=== PATIENT | male | born 1995 | race African-American/Black ===

== ENCOUNTER 2017-06-17 14:44 | Emergency (ER) | payer MEDICAID, OTHER ==
--- NOTE | 2017-06-17 15:08 | ED ---
General Adult HPI - General Chief complaint: Abdominal Pain Stated complaint: Abd Pain Time Seen by Provider: 06/17/17 15:07 Source: patient Mode of arrival: ambulatory Limitations: no limitations - History of Present Illness Initial comments: Vinnie is a 22-year-old male who presents to the emergency department today for evaluation of approximately 6 hours of nausea, vomiting and diarrhea. Patient reports that he woke this morning with some abdominal cramping, he subsequent later developed diarrhea. He reports he's had approximately 5 episodes of nonbloody diarrhea. He reports he's also been experiencing persistent nausea, worse with the smell of any food. He states he's had 5 episodes of nonbloody nonbilious emesis. Patient reports that he has been seen in the emergency department for this in the past that episodes like this of her approximately 2- 3 times a year. He's never followed up with gastroenterology or had a formal diagnosis. Patient denies any recent suspicious food intake, any sick contacts or anybody else in the household having similar symptoms. Denies any fevers, chills, dysuria, myalgias, URI-like symptoms. - Related Data Previous Rx's Medication Instructions Recorded Ondansetron Odt [Zofran Odt] 4 mg PO Q8HR PRN #8 tab 06/17/17 Allergies Allergy/AdvReac Type Severity Reaction Status Date / Time venom-honey bee Allergy Severe Anaphylaxis Verified 06/17/17 14:58 [bee venom (honey bee)] Review of Systems ROS Statement: Those systems with pertinent positive or pertinent negative responses have been documented in the HPI. ROS Other: All systems not noted in ROS Statement are negative. Constitutional: Denies: fever, chills ENT: Denies: throat pain Respiratory: Denies: cough Cardiovascular: Denies: palpitations Gastrointestinal: Reports: abdominal pain, nausea, vomiting, diarrhea Genitourinary: Denies: dysuria Skin: Denies: rash Hematological/Lymphatic: Reports: easy bleeding Past Medical History Past Medical History: No Reported History History of Any Multi-Drug Resistant Organisms: None Reported Past Surgical History: No Surgical Hx Reported Past Anesthesia/Blood Transfusion Reactions: No Reported Reaction Past Psychological History: Anxiety, Depression Smoking Status: Never smoker Past Alcohol Use History: Rare Past Drug Use History: None Reported - Past Family History Mother Family Medical History: Hypertension Father History Unknown: Yes General Exam Limitations: no limitations General appearance: alert, in no apparent distress Head exam: Present: atraumatic, normocephalic Eye exam: Present: normal appearance, PERRL ENT exam: Present: normal exam, normal oropharynx Neck exam: Present: normal inspection Respiratory exam: Present: normal lung sounds bilaterally. Absent: respiratory distress Cardiovascular Exam: Present: normal rhythm, tachycardia GI/Abdominal exam: Present: soft. Absent: distended, tenderness, guarding, rebound, rigid Rectal exam: Present: deferred Extremities exam: Present: normal inspection, full ROM Back exam: Present: normal inspection Neurological exam: Present: alert, oriented X3 Psychiatric exam: Present: anxious Skin exam: Present: warm, dry Course Vital Signs 06/17/17 06/17/17 06/17/17 14:51 16:33 18:05 Temperature 97.9 F 98.5 F Pulse Rate 109 H 107 H Respiratory 20 18 18 Rate Blood Pressure 110/73 125/63 O2 Sat by Pulse 100 98 Oximetry 06/17/17 19:30 Temperature 98.7 F Pulse Rate 88 Respiratory 16 Rate Blood Pressure 134/67 O2 Sat by Pulse 97 Oximetry - Reevaluation(s) Reevaluation #1: Patient was reevaluated, reports complete resolution of his nausea however is still experiencing significant cramping abdominal pain. Bentyl and morphine were ordered. 06/17/17 18:06 Medical Decision Making - Medical Decision Making Patient was seen and evaluated, vital signs were reviewed Patient is afebrile and tachycardic, likely secondary to dehydration Does go exam is unremarkable, patient has no tenderness in the epigastrium, tenderness in the periumbilical region or tenderness in the right lower quadrant. He complains of cramping diffuse abdominal pain worse higher to have a bowel movement. At this time I have is high suspicion for an enteritis likely secondary to something he ate or possible infectious. Patient has no risk factors for traveler's diarrhea or infectious causes of diarrhea. IV fluids, Zofran labs and an acute abdominal series were ordered Labs reveal a significant leukocytosis with neutrophilia. Computed tomography scan of the abdomen was ordered. Patient with resolution of his nausea but persistent abdominal pain. Bentyl and morphine ordered Patient tolerated oral contrast Computed tomography scan suggestive of enteritis with significant amount of fluid within the bowel. These results were discussed with the patient. I had a further discussion with the patient who admits that he has a very poor and inconsistent diet. He reports that he eats at fast food restaurants gas stations frequently he has had multiple episodes of food poisoning in the past few years. He states that he relates fruits or vegetables. I discussed with patient his poor nutritional choices and advised him that he would likely do better eating in his own home, more fruits and vegetables and less fast food. All questions pertaining to care were answered to the best of my ability and the patient was discharged home in stable condition. Patient was advised to maintain oral hydration with water and solution such as Gatorade or Powerade. - Lab Data Result diagrams: 06/17/17 15:36 06/17/17 15:36 Lab Results 06/17/17 06/17/17 06/17/17 Range/Units 15:36 15:36 16:30 WBC 18.6 H (3.8-10.6) k/uL RBC 5.19 (4.30-5.90) m/uL Hgb 16.3 (13.0-17.5) gm/dL Hct 49.0 (39.0-53.0) % MCV 94.5 (80.0-100.0) fL MCH 31.4 (25.0-35.0) pg MCHC 33.3 (31.0-37.0) g/dL RDW 11.9 (11.5-15.5) % Plt Count 303 (150-450) k/uL Neutrophils % 91 % Lymphocytes % 5 % Monocytes % 3 % Eosinophils % 1 % Basophils % 0 % Neutrophils # 16.9 H (1.3-7.7) k/uL Lymphocytes # 0.9 L (1.0-4.8) k/uL Monocytes # 0.5 (0-1.0) k/uL Eosinophils # 0.1 (0-0.7) k/uL Basophils # 0.0 (0-0.2) k/uL Sodium 142 (137-145) mmol/L Potassium 4.5 (3.5-5.1) mmol/L Chloride 103 (98-107) mmol/L Carbon Dioxide 27 (22-30) mmol/L Anion Gap 12 mmol/L BUN 14 (9-20) mg/dL Creatinine 0.89 (0.66-1.25) mg/dL Est GFR (MDRD) Af Amer >60 (>60 ml/min/1.73 sqM) Est GFR (MDRD) Non-Af >60 (>60 ml/min/1.73 sqM) Glucose 101 H (74-99) mg/dL Calcium 10.3 H (8.4-10.2) mg/dL Total Bilirubin 3.1 H (0.2-1.3) mg/dL AST 29 (17-59) U/L ALT 38 (21-72) U/L Alkaline Phosphatase 85 (38-126) U/L Total Protein 8.3 H (6.3-8.2) g/dL Albumin 4.8 (3.5-5.0) g/dL Urine Color Yellow Urine Appearance Clear (Clear) Urine pH 6.5 (5.0-8.0) Ur Specific [place] 1.025 (1.001-1.035) Urine Protein Trace H (Negative) Urine Glucose (UA) Negative (Negative) Urine Ketones 4+ H (Negative) Urine Blood Negative (Negative) Urine Nitrite Negative (Negative) Urine Bilirubin Negative (Negative) Urine Urobilinogen 2.0 (<2.0) mg/dL Ur Leukocyte Esterase Negative (Negative) Disposition Clinical Impression: Nausea vomiting and diarrhea Disposition: HOME SELF-CARE Condition: Good Instructions: Acute Nausea and Vomiting (ED) Prescriptions: Ondansetron Odt [Zofran Odt] 4 mg PO Q8HR PRN #8 tab PRN Reason: Nausea Referrals: None,Stated [Primary Care Provider] - 1-2 days
[2017-06-17] MEDS ORDERED: ONDANSETRON 4 MG/2 ML VIAL IVP STA (15:23)
[2017-06-17] MEDS ORDERED: SODIUM CHLORIDE 0.9% 1,000 ML IV ONE (15:23)
[2017-06-17 15:43] LABS: Basophils % (A) 0 %; Eosinophils # (A) 0.1 k/uL (0-0.7); Eosinophils % (A) 1 %; HGB 16.3 gm/dL (13.0-17.5); Lymphocytes # (A) 0.9 k/uL (1.0-4.8); Lymphocytes % (A) 5 %; MCH 31.4 pg (25.0-35.0); MCHC 33.3 g/dL (31.0-37.0); MCV 94.5 fL (80.0-100.0); Mean Platelet Volume 6.9; Monocytes # (A) 0.5 k/uL (0-1.0); Monocytes % (A) 3 %; Neutrophils # (A) 16.9 k/uL (1.3-7.7); Neutrophils % (A) 91 %; Platelet Count 303 k/uL (150-450); RBC 5.19 m/uL (4.30-5.90); RDW 11.9 % (11.5-15.5); WBC 18.6 k/uL (3.8-10.6)
[2017-06-17] MEDS ORDERED: IOHEXOL 350 MG/ML 25 ML BOTTLE (ORAL USE) PO PRN (15:52)
[2017-06-17] MEDS ORDERED: RX INFO: IV CONTRAST WAS GIVEN 1 EACH MISC MISCELLANE PRN (15:52)
[2017-06-17 15:54] LABS: ALT 38 U/L (21-72); AST 29 U/L (17-59); Albumin 4.8 g/dL (3.5-5.0); Alkaline Phosphatase 85 U/L (38-126); Anion Gap 12 mmol/L; Blood Urea Nitrogen 14 mg/dL (9-20); Calcium 10.3 mg/dL (8.4-10.2); Carbon Dioxide 27 mmol/L (22-30); Chloride 103 mmol/L (98-107); Glucose 101 mg/dL (74-99); Potassium 4.5 mmol/L (3.5-5.1); Sodium 142 mmol/L (137-145); Total Bilirubin 3.1 mg/dL (0.2-1.3); Total Protein 8.3 g/dL (6.3-8.2)
--- NOTE | 2017-06-17 16:16 | XR ---
EXAMINATION TYPE: XR abdomen acute w cxr DATE OF EXAM: 06/17/2017 COMPARISON: 12/06/2011 HISTORY: Abdominal pain TECHNIQUE: 4 views FINDINGS: Lungs are clear. Heart and mediastinum are normal. Bowel gas pattern is normal. There is no sign of i ntestinal obstruction or pneumoperitoneum. Fecal pattern is normal. There are no pathologic calcifica tions over the kidneys. There is no evidence of a mass. CONCLUSION: Nonacute abdomen. Normal chest. Abdomen is stable compared to old exam.
[2017-06-17 16:40] LABS: Appearance,Urine Clear (Clear); Bilirubin,Urine Negative (Negative); Blood,Urine Negative (Negative); Color,Urine Yellow; Glucose,Urine (UA) Negative (Negative); Ketones,Urine 4+ (Negative); Leukocyte Esterase,Urine Negative (Negative); Nitrite,Urine Negative (Negative); PH, Urine 6.5 (5.0-8.0); Protein,Urine Trace (Negative); Specific Gravity,Urine 1.025 (1.001-1.035)
[2017-06-17] MEDS ORDERED: MORPHINE SULFATE 5 MG/ML SYRINGE IVP STA (18:01)
[2017-06-17] MEDS ORDERED: DICYCLOMINE 10 MG/ML 2 ML AMP IM STA (18:01)
--- NOTE | 2017-06-17 18:56 | CT ---
EXAMINATION TYPE: CT abdomen pelvis w con DATE OF EXAM: 06/17/2017 COMPARISON: NONE HISTORY: Generalized pain with vomiting and diarrhea CT DLP: 346.4 mGycm Automated exposure control for dose reduction was used. TECHNIQUE: Helical acquisition of images was performed from the lung bases through the pelvis. CONTRAST: Performed without Oral Contrast and with IV Contrast, patient injected with 100 mL of Omnipaque 300. FINDINGS: Lung bases are clear. There is no pleural effusion. Heart size is normal. Liver spleen pancreas gallbladder appear normal. Bile ducts are not dilated. There is no adrenal mass . Kidneys show satisfactory contrast opacification. There is no hydronephrosis. Ureters are not dilated . There is no retroperitoneal adenopathy. There is no ascites. There are large bowel fluid levels there is fluid level in the rectum. Bladder distends smoothly. There is no sign of a pelvic mass. I see no bony destructive process. Appendix is not seen. There is no sign of appendicitis. There is a small 7 mm cyst on the medial right kidney. IMPRESSION: LARGE BOWEL FLUID LEVELS CONSISTENT WITH DIARRHEA. THERE ARE FLUID-FILLED LOOPS OF DISTAL SMALL BOWEL CONSISTENT WITH MILD ILEUS. NO SIGN OF APPENDICITI S.
[2017-06-17 19:31] VITALS: BP 134/67; PULSE 88; RESP 16; TEMP 98.7
== END 2017-06-17 19:31 | disposition home or self-care (01) ==
LOC: EC 14:44
DX: R11.2 Nausea with vomiting, unspecified (principal); R19.7 Diarrhea, unspecified; R00.0 Tachycardia, unspecified; D72.829 Elevated white blood cell count, unspecified; D72.0 Genetic anomalies of leukocytes; F41.9 Anxiety disorder, unspecified; R10.84 Generalized abdominal pain; Z91.030 Bee allergy status
CPT/HCPCS: 36415; 80053; 85025; 81003; 74022; 74177; 99284; 96374; 96375; 96361; 96372; J0500; J2405; Q9967; J2274

== ENCOUNTER 2022-12-25 13:54 | Inpatient (IN) | payer OTHER ==
[2022-12-25] MEDS ORDERED: SODIUM CHLORIDE 0.9% 1,000 ML IV STA ×2 (14:15→16:55)
[2022-12-25] MEDS ORDERED: SODIUM CHLORIDE 0.9% 500 ML 500 ML IV STA ×2 (14:15→16:55)
[2022-12-25] MEDS ORDERED: ACETAMINOPHEN TAB 500 MG TAB PO STA (14:16)
[2022-12-25] MEDS ORDERED: IBUPROFEN 600 MG TAB PO STA (14:16)
[2022-12-25 14:49] LABS: Basophils % (A) 0 %; Eosinophils # (A) 0.3 k/uL (0-0.7); Eosinophils % (A) 2 %; HCT 42.9 % (39.0-53.0); HGB 13.9 gm/dL (13.0-17.5); Lymphocytes # (A) 1.9 k/uL (1.0-4.8); Lymphocytes % (A) 13 %; MCH 30.7 pg (25.0-35.0); MCHC 32.3 g/dL (31.0-37.0); MCV 95.1 fL (80.0-100.0); Monocytes # (A) 1.2 k/uL (0-1.0); Monocytes % (A) 8 %; Neutrophils # (A) 10.9 k/uL (1.3-7.7); Neutrophils % (A) 74 %; Platelet Count 316 k/uL (150-450); RBC 4.51 m/uL (4.30-5.90); RDW 11.6 % (11.5-15.5); WBC 14.6 k/uL (3.8-10.6)
[2022-12-25 15:03] LABS: ALT 26 U/L (4-49); AST 51 U/L (17-59); African American GFR (CKD) >90 (>60 ml/min/1.73 sqM); Albumin 4.4 g/dL (3.5-5.0); Alkaline Phosphatase 73 U/L (38-126); Anion Gap 10 mmol/L; Blood Urea Nitrogen 5 mg/dL (9-20); Calcium 9.1 mg/dL (8.4-10.2); Carbon Dioxide 27 mmol/L (22-30); Chloride 97 mmol/L (98-107); Glucose 121 mg/dL (74-99); Lipase 37 U/L (23-300); Non-African American GFR(CKD) >90 (>60 ml/min/1.73 sqM); Potassium 3.8 mmol/L (3.5-5.1); Sodium 134 mmol/L (137-145); Total Bilirubin 2.6 mg/dL (0.2-1.3); Total Protein 8.1 g/dL (6.3-8.2)
--- NOTE | 2022-12-25 15:23 | ED ---
Abdominal Pain HPI <Ele Baker - Last Filed: 12/25/22 23:57> - General Source: patient, RN notes reviewed Mode of arrival: ambulatory Limitations: no limitations <Mandeep Oropeza - Last Filed: 12/26/22 12:49> - General Chief Complaint: Abdominal Pain Stated Complaint: abd pain Time Seen by Provider: 12/25/22 14:15 - History of Present Illness Initial Comments: This a 27-year-old male presents emergency Department chief complaint abdominal pain. Patient states his started over a week ago states he seen at [facility] had labs and x-ray delivering was fine states pain is she started getting better but now has worsened. Patient developed a fever he denies any cough or cold-like symptoms see does admit to nausea, unable to eat. Patient has no complaints of dysuria no prior abdominal surgeries. (Mandeep Oropeza) - Related Data Home Medications Medication Instructions Recorded Confirmed No Known Home Medications 12/25/22 12/25/22 Allergies Allergy/AdvReac Type Severity Reaction Status Date / Time venom-honey bee Allergy Severe Anaphylaxis Verified 12/25/22 18:30 [bee venom (honey bee)] Review of Systems ROS Other: All systems not noted in ROS Statement are negative. <Ele Baker - Last Filed: 12/25/22 23:57> ROS Other: All systems not noted in ROS Statement are negative. <Mandeep Oropeza - Last Filed: 12/26/22 12:49> ROS Statement: Those systems with pertinent positive or pertinent negative responses have been documented in the HPI. Past Medical History Past Medical History: No Reported History History of Any Multi-Drug Resistant Organisms: None Reported Past Surgical History: No Surgical Hx Reported Past Anesthesia/Blood Transfusion Reactions: No Reported Reaction Past Psychological History: Anxiety, Depression Smoking Status: Never smoker Past Alcohol Use History: Rare Past Drug Use History: Marijuana - Past Family History Mother Family Medical History: Hypertension Father History Unknown: Yes <Mandeep Oropeza - Last Filed: 12/26/22 12:49> General Exam Limitations: no limitations General appearance: alert, in no apparent distress Head exam: Present: atraumatic, normocephalic, normal inspection Eye exam: Present: normal appearance, PERRL, EOMI. Absent: scleral icterus, conjunctival injection, periorbital swelling ENT exam: Present: normal exam, normal oropharynx, mucous membranes moist Neck exam: Present: normal inspection, full ROM. Absent: tenderness, meningismus, lymphadenopathy Respiratory exam: Present: normal lung sounds bilaterally. Absent: respiratory distress, wheezes, rales, rhonchi, stridor Cardiovascular Exam: Present: regular rate, normal rhythm, normal heart sounds. Absent: systolic murmur, diastolic murmur, rubs, gallop, clicks GI/Abdominal exam: Present: soft, tenderness, normal bowel sounds. Absent: distended, guarding, rebound, rigid Back exam: Absent: CVA tenderness (R), CVA tenderness (L) <Mandeep Oropeza - Last Filed: 12/26/22 12:49> Course Vital Signs 12/25/22 12/25/22 12/25/22 14:05 15:24 17:49 Temperature 102.9 F H 99.0 F Pulse Rate 90 87 Respiratory 18 16 Rate Blood Pressure 140/107 107/65 O2 Sat by Pulse 98 99 Oximetry 12/25/22 18:08 Temperature 99.0 F Pulse Rate 72 Respiratory 18 Rate Blood Pressure 109/70 O2 Sat by Pulse 97 Oximetry Medical Decision Making - Lab Data Result diagrams: 12/25/22 14:39 12/25/22 14:39 - Radiology Data Radiology results: report reviewed, image reviewed <Ele Baker - Last Filed: 12/25/22 23:57> - Lab Data Result diagrams: 12/25/22 14:39 12/25/22 14:39 <Mandeep Oropeza - Last Filed: 12/26/22 12:49> - Medical Decision Making This is a 27-year-old male who presents to the emergency department for fevers and abdominal pain. Case signed out to me by Mandeep Oropeza PA-C, at shift completion. At that time, the results of his computed tomography scan were pending. Lab work revealed leukocytosis with a value of 14.6. Urinalysis demonstrates blood, but no signs of infection. Computed tomography scan of the abdomen/pelvis revealed a left lower lobe consolidation without evidence for acute intra-abdominal process. With the leukocytosis, and with the patient being febrile at 102.9F on arrival, he does meet SIRS criteria. After the computed tomography scan identified the source of infection as being pneumonia, he met septic criteria at 1620. He had already received 1500 mL of IV fluids a nd was given another 500 mL to meet the 30 mL/kg criteria for sepsis fluid bolus. He was started on azithromycin and ceftriaxone per pneumonia protocol with blood cultures obtained prior. Patient admitted to medicine for further management of pneumonia and sepsis. Case discussed with Josiah Arnold with [facility], who accepts the patient for admission. Home medications were reconciled (pt takes no medication at home). Diagnosis/symptom? @ -Pneumonia, sepsis Acute, or Chronic, or Acute on Chronic? @ -Acute Uncomplicated (without systemic symptoms) or Complicated (systemic symptoms)? @ -Complicated Side effects of treatment? @ -None Exacerbation, Progression, or Severe Exacerbation] @ -Not applicable Poses a threat to life or bodily function? @ -Yes This case was discussed in detail with the attending ED physician, Dr. Oquendo. Presentation, findings, and treatment plan discussed in detail as well. (Ele Baker) Was pt. sent in by a medical professional or institution (, PA, SPOT CHECKER, urgent care, hospital, or jail...) When possible be specific @ -[No] Did you speak to anyone other than the patient for history (EMS, parent, family, police, friend...)? What history was obtained from this source @ -[No] Did you review nursing and triage notes (agree or disagree)? Why? @ -[I reviewed and agree with nursing and triage notes] Were old charts reviewed (outside hosp., previous admission, EMS record, old EKG, old radiological studies, urgent care reports/EKG's, jail records)? Report findings @ -[No old charts were reviewed] Differential Diagnosis (chest pain, altered mental status, abdominal pain women, abdominal pain men, vaginal bleeding, weakness, fever, dyspnea, syncope, headache, dizziness, GI bleed, back pain, seizure, CVA, palpatations, mental health, musculoskeletal)? @ -[Differential Abdominal Pain Men: Appendicitis, cholecystitis, diverticulosis, ischemic bowel, pancreatitis, hepatitis, UTI, gastroenteritis, AAA, incarcerated hernia, bowel obstruction, constipation, inflammatory bowel, hepatitis, peptic ulcer disease, splenic infarction, perforated viscus, testicular torsion, this is not meant to be an all-inclusive listable] EKG interpreted by me (3pts min.). @ -[None ] X-rays interpreted by me (1pt min.). @ -[None done] CT interpreted by me (1pt min.). @ -[None done] U/S interpreted by me (1pt. min.). @ -[None done] What testing was considered but not performed or refused? (CT, X-rays, U/S, labs)? Why? @ -[None] What meds were considered but not given or refused? Why? @ -[None] Did you discuss the management of the patient with other professionals (professionals i.e. , PA, SPOT CHECKER, lab, RT, psych nurse, public health social worker, cuprous chloride helper, t eacher, juvenile justice officer, rehabilitation case coordinator)? Give summary @ -[No] Was smoking cessation discussed for >3mins.? @ -[No] Was critical care preformed (if so, how long)? @ -[No] Were there social determinants of health that impacted care today? How? (Homelessness, low income, unemployed, alcoholism, drug addiction, transportation, low edu. Level, literacy, decrease access to med. care, snf, r ehab)? @ -[No] Was there de-escalation of care discussed even if they declined (Discuss DNR or withdrawal of care, Hospice)? DNR status @ -[No] What co-morbidities impacted this encounter? (DM, HTN, Smoking, COPD, CAD, Cance r, CVA, ARF, Chemo, Hep., AIDS, mental health diagnosis, sleep apnea, morbid obesity)? @ -[None] Was patient admitted / discharged? Hospital course, mention meds given and route, prescriptions, significant lab abnormalities, going to OR and other pertinent info. @ -[Case was signed out to Aydee Baker pending CT] Undiagnosed new problem with uncertain prognosis? @ -[No] Drug Therapy requiring intensive monitoring for toxicity (Heparin, Nitro, Insulin, Cardizem)? @ -[No] Were any procedures done? @ -[No] (Mandeep Oropeza) - Lab Data Lab Results 12/25/22 12/25/22 12/25/22 Range/Units 14:39 14:39 14:39 WBC 14.6 H (3.8-10.6) k/uL RBC 4.51 (4.30-5.90) m/uL Hgb 13.9 (13.0-17.5) gm/dL Hct 42.9 (39.0-53.0) % MCV 95.1 (80.0-100.0) fL MCH 30.7 (25.0-35.0) pg MCHC 32.3 (31.0-37.0) g/dL RDW 11.6 (11.5-15.5) % Plt Count 316 (150-450) k/uL MPV 8.0 Neutrophils % 74 % Lymphocytes % 13 % Monocytes % 8 % Eosinophils % 2 % Basophils % 0 % Neutrophils # 10.9 H (1.3-7.7) k/uL Lymphocytes # 1.9 (1.0-4.8) k/uL Monocytes # 1.2 H (0-1.0) k/uL Eosinophils # 0.3 (0-0.7) k/uL Basophils # 0.0 (0-0.2) k/uL Sodium 134 L (137-145) mmol/L Potassium 3.8 (3.5-5.1) mmol/L Chloride 97 L (98-107) mmol/L Carbon Dioxide 27 (22-30) mmol/L Anion Gap 10 mmol/L BUN 5 L (9-20) mg/dL Creatinine 0.84 (0.66-1.25) mg/dL Est GFR (CKD-EPI)AfAm >90 (>60 ml/min/1.73 sqM) Est GFR (CKD-EPI)NonAf >90 (>60 ml/min/1.73 sqM) Glucose 121 H (74-99) mg/dL Plasma Lactic Acid Luis 1.4 (0.7-2.0) mmol/L Calcium 9.1 (8.4-10.2) mg/dL Total Bilirubin 2.6 H (0.2-1.3) mg/dL AST 51 (17-59) U/L ALT 26 (4-49) U/L Alkaline Phosphatase 73 (38-126) U/L Total Protein 8.1 (6.3-8.2) g/dL Albumin 4.4 (3.5-5.0) g/dL Lipase 37 (23-300) U/L Urine Color Urine Appearance (Clear) Urine pH (5.0-8.0) Ur Specific Malin (1.001-1.035) Urine Protein (Negative) Urine Glucose (UA) (Negative) Urine Ketones (Negative) Urine Blood (Negative) Urine Nitrite (Negative) Urine Bilirubin (Negative) Urine Urobilinogen (<2.0) mg/dL Ur Leukocyte Esterase (Negative) Urine RBC (0-5) /hpf Urine WBC (0-5) /hpf Ur Squamous Epith Cells (0-4) /hpf Urine Mucus (None) /hpf 12/25/22 Range/Units 15:22 WBC (3.8-10.6) k/uL RBC (4.30-5.90) m/uL Hgb (13.0-17.5) gm/dL Hct (39.0-53.0) % MCV (80.0-100.0) fL MCH (25.0-35.0) pg MCHC (31.0-37.0) g/dL RDW (11.5-15.5) % Plt Count (150-450) k/uL MPV Neutrophils % % Lymphocytes % % Monocytes % % Eosinophils % % Basophils % % Neutrophils # (1.3-7.7) k/uL Lymphocytes # (1.0-4.8) k/uL Monocytes # (0-1.0) k/uL Eosinophils # (0-0.7) k/uL Basophils # (0-0.2) k/uL Sodium (137-145) mmol/L Potassium (3.5-5.1) mmol/L Chloride (98-107) mmol/L Carbon Dioxide (22-30) mmol/L Anion Gap mmol/L BUN (9-20) mg/dL Creatinine (0.66-1.25) mg/dL Est GFR (CKD-EPI)AfAm (>60 ml/min/1.73 sqM) Est GFR (CKD-EPI)NonAf (>60 ml/min/1.73 sqM) Glucose (74-99) mg/dL Plasma Lactic Acid Luis (0.7-2.0) mmol/L Calcium (8.4-10.2) mg/dL Total Bilirubin (0.2-1.3) mg/dL AST (17-59) U/L ALT (4-49) U/L Alkaline Phosphatase (38-126) U/L Total Protein (6.3-8.2) g/dL Albumin (3.5-5.0) g/dL Lipase (23-300) U/L Urine Color Yellow Urine Appearance Clear (Clear) Urine pH 6.5 (5.0-8.0) Ur Specific Malin 1.028 (1.001-1.035) Urine Protein 3+ H (Negative) Urine Glucose (UA) Negative (Negative) Urine Ketones 1+ H (Negative) Urine Blood Large H (Negative) Urine Nitrite Negative (Negative) Urine Bilirubin Negative (Negative) Urine Urobilinogen 3.0 (<2.0) mg/dL Ur Leukocyte Esterase Negative (Negative) Urine RBC 78 H (0-5) /hpf Urine WBC 3 (0-5) /hpf Ur Squamous Epith Cells 1 (0-4) /hpf Urine Mucus Many H (None) /hpf Disposition <Ele Baker - Last Filed: 12/25/22 23:57> <Mandeep Oropeza - Last Filed: 12/26/22 12:49> Clinical Impression: Pneumonia, Sepsis Disposition: ADMITTED IP TO THIS HOSP
[2022-12-25 16:11] LABS: Appearance,Urine Clear (Clear); Bilirubin,Urine Negative (Negative); Blood,Urine Large (Negative); Color,Urine Yellow; Glucose,Urine (UA) Negative (Negative); Ketones,Urine 1+ (Negative); Leukocyte Esterase,Urine Negative (Negative); Mucus,Urine Many /hpf; Nitrite,Urine Negative (Negative); PH, Urine 6.5 (5.0-8.0); Protein,Urine 3+ (Negative); RBC,Urine 78 /hpf (0-5); Specific Gravity,Urine 1.028 (1.001-1.035); Squamous Epithelial Cell,Urine 1 /hpf (0-4); WBC,Urine 3 /hpf (0-5)
--- NOTE | 2022-12-25 16:20 | CT ---
EXAMINATION TYPE: CT abdomen pelvis w con CT DLP: 564.5 mGycm, Automated exposure control for dose reduction was used. DATE OF EXAM: 12/25/2022 4:03 PM COMPARISON: CT abdomen pelvis most recent from 06/17/2017 CLINICAL INDICATION:Male, 27 years old with history of abdominal pain; abdominal pain TECHNIQUE: Axial CT of the abdomen and pelvis. Sagittal and coronal reformats were created on a [employer] workstation. Contrast used:100 mL of Isovue 300 with IV Contrast, (none if empty) Oral contrast used: without Oral Contrast (none if empty) FINDINGS: LOWER CHEST: Airspace consolidation in the left lower lung. ABDOMEN LIVER: Unremarkable GALLBLADDER AND BILE DUCTS: Unremarkable. PANCREAS: Unremarkable. SPLEEN: Unremarkable. ADRENAL GLANDS: Unremarkable. KIDNEYS AND URETERS: No evidence of hydronephrosis or renal calculus. The ureters are unremarkable. PELVIS BLADDER: Incompletely distended but grossly unremarkable. REPRODUCTIVE: Unremarkable. ABDOMEN & PELVIS STOMACH AND BOWEL: No evidence of bowel obstruction. PERITONEUM/RETROPERITONEUM: No evidence of pneumoperitoneum or free fluid. VASCULATURE: No evidence of aortic aneurysm. MUSCULOSKELETAL: No acute osseous abnormalities LYMPH NODES: No gross evidence for lymphadenopathy. SOFT TISSUE/ABDOMINAL WALL: Unremarkable IMPRESSION: 1. Left lower lung airspace consolidation compatible with pneumonia. 2. No acute intra-abdominal process to explain the patient's pain.
[2022-12-25] MEDS ORDERED: PNEUMONIA PROTOCOL UTILIZED 1 EACH MISC PO PRN (16:41)
[2022-12-25] MEDS ORDERED: AZITHROMYCIN 500 MG in SODIUM CHLORIDE 0.9% 250 ML IVPB STA (16:41)
[2022-12-25] MEDS ORDERED: KETOROLAC 15 MG/ML 1 ML VIAL IVP STA (16:43)
[2022-12-25] MEDS ORDERED: ONDANSETRON 4 MG/2 ML VIAL IVP STA (16:43)
[2022-12-25] MEDS ORDERED: MORPHINE SULFATE 4 MG/ML SYRINGE IV PRN (16:47)
[2022-12-25] MEDS ORDERED: NALOXONE 0.4 MG/ML 1 ML VIAL IV PRN (16:47)
[2022-12-25] MEDS ORDERED: ACETAMINOPHEN TAB 325 MG TAB PO PRN (16:47)
[2022-12-25] MEDS ORDERED: IBUPROFEN 400 MG TAB PO PRN (16:47)
[2022-12-25] MEDS ORDERED: KETOROLAC 15 MG/ML 1 ML VIAL IVP PRN (16:47)
[2022-12-25] MEDS ORDERED: ONDANSETRON 4 MG/2 ML VIAL IVP PRN (16:47)
--- NOTE | 2022-12-26 07:43 | XR ---
EXAMINATION TYPE: XR chest 1V portable DATE OF EXAM: 12/26/2022 6:42 AM COMPARISON: CT 12/25/2022 TECHNIQUE: XR chest 1V portable Frontal view of the chest. CLINICAL INDICATION:Male, 27 years old with history of pneumonia; FINDINGS: Lungs/Pleura: Opacities over the heart is less well appreciated compared to CT. There is no evidence of pleural effusion, focal consolidation, or pneumothorax. Pulmonary vascularity: Unremarkable. Heart/mediastinum: Cardiomediastinal silhouette is unremarkable. Musculoskeletal: No acute osseous pathology. IMPRESSION: Left lower lobe airspace opacities are better appreciated on CT.
[2022-12-26] MEDS: AZITHROMYCIN 500 MG TAB PO SCH (11:02)
--- NOTE | 2022-12-26 14:09 | P.HPIM ---
History of Present Illness H&P Date: 12/26/22 History of present illness; Patient is a 27-year-old gentleman with no significant past medical history brought to the ER for abdominal pain. Patient stated that he was seen in [facility] this similar complaints and was discharged. Stated that ever since that he has been having worsening abdominal pain. Patient also complained of fevers at home. Denies any cough. Denies any shortness of breath Initial lab work done in the ER showed WBCs 14.6, hemoglobin 13.9, platelet count 316, sodium 134, potassium 3.8, BUN 5, creatinine 0.84, total bilirubin 2.6, UA was positive for blood, leukocyte Estrace was negative, nitrite was negative CT of the abdominal and pelvis done showed left lower lung airspace consolidation, compatible with pneumonia X-ray of chest done showed left lower lobe airspace opacity he was admitted to medicine service REVIEW OF SYSTEMS: CONSTITUTIONAL: No fever, no malaise, no fatigue. HEENT: No recent visual problems or hearing problems. Denied any sore throat. CARDIOVASCULAR: No chest pain, orthopnea, PND, no palpitations, no syncope. PULMONARY: No shortness of breath, no cough, no hemoptysis. GASTROINTESTINAL: As mentioned in HPI NEUROLOGICAL: No headaches, no weakness, no numbness. HEMATOLOGICAL: Denies any bleeding or petechiae. GENITOURINARY: Denies any burning micturition, frequency, or urgency. MUSCULOSKELETAL/RHEUMATOLOGICAL: Denies any joint pain, swelling, or any muscle pain. ENDOCRINE: Denies any polyuria or polydipsia. The rest of the 14-point review of systems is negative. PHYSICAL EXAMINATION: GENERAL: The patient is alert and oriented x3, not in any acute distress. Well developed, well nourished. HEENT: Pupils are round and equally reacting to light. EOMI. No scleral icterus. No conjunctival pallor. Normocephalic, atraumatic. No pharyngeal erythema. No thyromegaly. CARDIOVASCULAR: S1 and S2 present. No murmurs, rubs, or gallops. PULMONARY: Chest is clear to auscultation, no wheezing or crackles. ABDOMEN: Soft, nontender, nondistended, normoactive bowel sounds. No palpable or ganomegaly. MUSCULOSKELETAL: No joint swelling or deformity. EXTREMITIES: No cyanosis, clubbing, or pedal edema. NEUROLOGICAL: Gross neurological examination did not reveal any focal deficits. SKIN: No rashes. Assessment and plan Sepsis Bacterial pneumonia Monitor vital signs Monitor CBC Monitor CMP Continue telemetry monitoring Follow-up on blood cultures Ordered sputum culture continue IV Rocephin and azithromycin continue IV fluids consult ID Labs and medication were reviewed.. Continue same treatment. Continue with symptomatic treatment. Resume home medication. Monitor labs and vitals. DVT and GI prophylaxis. Further recommendations as per clinical course of the patient Past Medical History Past Medical History: No Reported History History of Any Multi-Drug Resistant Organisms: None Reported Past Surgical History: No Surgical Hx Reported Past Anesthesia/Blood Transfusion Reactions: No Reported Reaction Past Psychological History: Anxiety, Depression Smoking Status: Never smoker Past Alcohol Use History: Rare Additional Past Alcohol Use History / Comment(s): Pt denies alcohol abuse history. Past Drug Use History: Marijuana Additional Drug Use History / Comment(s): Pt states that he has a history of smoking MJ-- last use about nine months ago per patient. Patient states that he has a history of abusing xanax over one year ago per patient. - Past Family History Mother Family Medical History: Hypertension Father History Unknown: Yes Medications and Allergies Home Medications Medication Instructions Recorded Confirmed Type No Known Home Medications 12/25/22 12/25/22 History Allergies Allergy/AdvReac Type Severity Reaction Status Date / Time venom-honey bee Allergy Severe Anaphylaxis Verified 12/25/22 18:30 [bee venom (honey bee)] Physical Exam Vitals: Vital Signs Temp Pulse Pulse Resp BP BP Pulse Ox 12/26/22 07:13 99.1 F 93 15 105/62 98 12/26/22 00:45 98.3 F 71 18 122/76 100 12/25/22 20:00 15 12/25/22 19:35 98.6 F 74 18 143/64 100 12/25/22 18:08 99.0 F 72 18 109/70 97 12/25/22 17:49 87 16 107/65 99 12/25/22 15:24 99.0 F 12/25/22 14:05 102.9 F H 90 18 140/107 98 Intake and Output 12/25/22 12/26/22 12/26/22 22:59 06:59 14:59 Intake Total 1570 Balance 1570 Intake: Intake, IV Titration 1090 Amount Sodium Chloride 0.9% 1, 1040 000 ml @ 130 mls/hr IV . Q7H42M STA Rx#:[id number] cefTRIAXone 2 gm In 50 Sodium Chloride 0.9% 50 ml @ 100 mls/hr IVPB ONCE STA Rx#:[id number] Oral 480 Other: # Voids 1 Weight 65.317 kg Results CBC & Chem 7: 12/25/22 14:39 12/25/22 14:39 Labs: Abnormal Lab Results - Last 24 Hours (Table) 12/25/22 12/25/22 12/25/22 Range/Units 14:39 14:39 15:22 WBC 14.6 H (3.8-10.6) k/uL Neutrophils # 10.9 H (1.3-7.7) k/uL Monocytes # 1.2 H (0-1.0) k/uL Sodium 134 L (137-145) mmol/L Chloride 97 L (98-107) mmol/L BUN 5 L (9-20) mg/dL Glucose 121 H (74-99) mg/dL Total Bilirubin 2.6 H (0.2-1.3) mg/dL C-Reactive Protein (<1.0) mg/dL Urine Protein 3+ H (Negative) Urine Ketones 1+ H (Negative) Urine Blood Large H (Negative) Urine RBC 78 H (0-5) /hpf Urine Mucus Many H (None) /hpf 12/25/22 Range/Units 17:15 WBC (3.8-10.6) k/uL Neutrophils # (1.3-7.7) k/uL Monocytes # (0-1.0) k/uL Sodium (137-145) mmol/L Chloride (98-107) mmol/L BUN (9-20) mg/dL Glucose (74-99) mg/dL Total Bilirubin (0.2-1.3) mg/dL C-Reactive Protein 13.2 H (<1.0) mg/dL Urine Protein (Negative) Urine Ketones (Negative) Urine Blood (Negative) Urine RBC (0-5) /hpf Urine Mucus (None) /hpf Thrombosis Risk Factor Assmnt - Choose All That Apply Any of the Below Risk Factors Present?: No Other Risk Factors: No Thrombosis Risk Factor Assessment Level: Very Low Risk
--- NOTE | 2022-12-26 22:14 | P.CONS ---
History of Present Illness - Reason for Consult Consult date: 12/26/22 - History of Present Illness Patient is a 27-year-old -[place] male with no significant past medical history presenting to the hospital for evaluation of left-sided abdominal pain and also complaining of cough and cold symptoms patient's symptom has been going on for about 4 days with the patient complaining of fever with rigors and chills did have some headache mild in nature mild URI symptoms and also having a cough which has been moderate intensity with occasional sputum production left lower chest pain especially with a deep breath and coughing moderate intensity with no radiation did have some nausea and vomiting and also having diarrhea with multiple loose stool no more blood or mucus in the stool patient on presentation to the hospital did have a fever of 102.9 F patient was not tachycardic hypot ensive or hypoxic and no need for supplemental oxygen he did have a white count of 14.6 with a left shift kidney function was normal liver enzymes are normal urine was negative influenza RSV and COVID testing was negative patient did have a CT abdominal pelvis which did show left lower lobe pneumonia no acute intra- abdominal process patient was started on Rocephin and Zithromax infectious disease was consulted for further management of antibiotic therapy Past Medical History Past Medical History: No Reported History History of Any Multi-Drug Resistant Organisms: None Reported Past Surgical History: No Surgical Hx Reported Past Anesthesia/Blood Transfusion Reactions: No Reported Reaction Past Psychological History: Anxiety, Depression Smoking Status: Never smoker Past Alcohol Use History: Rare Additional Past Alcohol Use History / Comment(s): Pt denies alcohol abuse histor y. Past Drug Use History: Marijuana Additional Drug Use History / Comment(s): Pt states that he has a history of smoking MJ-- last use about nine months ago per patient. Patient states that he has a history of abusing xanax over one year ago per patient. - Past Family History Mother Family Medical History: Hypertension Father History Unknown: Yes Medications and Allergies Home Medications Medication Instructions Recorded Confirmed Type No Known Home Medications 12/25/22 12/25/22 History Allergies Allergy/AdvReac Type Severity Reaction Status Date / Time venom-honey bee Allergy Severe Anaphylaxis Verified 12/25/22 18:30 [bee venom (honey bee)] Physical Exam Vitals: Vital Signs Temp Pulse Pulse Resp BP BP Pulse Ox 12/26/22 11:56 16 12/26/22 07:13 99.1 F 93 15 105/62 98 12/26/22 00:45 98.3 F 71 18 122/76 100 12/25/22 20:00 15 12/25/22 19:35 98.6 F 74 18 143/64 100 12/25/22 18:08 99.0 F 72 18 109/70 97 12/25/22 17:49 87 16 107/65 99 12/25/22 15:24 99.0 F 12/25/22 14:05 102.9 F H 90 18 140/107 98 Intake and Output 12/25/22 12/26/22 12/26/22 22:59 06:59 14:59 Intake Total 1570 300 Balance 1570 300 Intake: Intake, IV Titration 1090 Amount Sodium Chloride 0.9% 1, 1040 000 ml @ 130 mls/hr IV . Q7H42M STA Rx#:[id number] cefTRIAXone 2 gm In 50 Sodium Chloride 0.9% 50 ml @ 100 mls/hr IVPB ONCE STA Rx#:[id number] Oral 480 300 Other: # Voids 1 Weight 65.317 kg Results CBC & Chem 7: 12/25/22 14:39 12/25/22 14:39 Labs: Abnormal Lab Results - Last 24 Hours (Table) 12/25/22 12/25/22 12/25/22 Range/Units 14:39 14:39 15:22 WBC 14.6 H (3.8-10.6) k/uL Neutrophils # 10.9 H (1.3-7.7) k/uL Monocytes # 1.2 H (0-1.0) k/uL Sodium 134 L (137-145) mmol/L Chloride 97 L (98-107) mmol/L BUN 5 L (9-20) mg/dL Glucose 121 H (74-99) mg/dL Total Bilirubin 2.6 H (0.2-1.3) mg/dL C-Reactive Protein (<1.0) mg/dL Urine Protein 3+ H (Negative) Urine Ketones 1+ H (Negative) Urine Blood Large H (Negative) Urine RBC 78 H (0-5) /hpf Urine Mucus Many H (None) /hpf 12/25/22 Range/Units 17:15 WBC (3.8-10.6) k/uL Neutrophils # (1.3-7.7) k/uL Monocytes # (0-1.0) k/uL Sodium (137-145) mmol/L Chloride (98-107) mmol/L BUN (9-20) mg/dL Glucose (74-99) mg/dL Total Bilirubin (0.2-1.3) mg/dL C-Reactive Protein 13.2 H (<1.0) mg/dL Urine Protein (Negative) Urine Ketones (Negative) Urine Blood (Negative) Urine RBC (0-5) /hpf Urine Mucus (None) /hpf Assessment and Plan Plan: 1patient present to hospital with sepsis in this patient who did have fever elevated white count source is a left lower lobe pneumonia likely community- acquired with predominant GI symptoms however need to rule out underlying Legionella infection 2-we will obtain urine for Legionella antigen try to obtain a sputum check a CRP and a procalcitonin 3-we will continue the patient on Rocephin and Zithromax We will follow on clinical condition and cultures to further adjust medication if needed Thank you for this consultation we will follow the patient along with you Time with Patient: Greater than 30
[2022-12-27] MEDS: AZITHROMYCIN 500 MG TAB PO SCH (07:59)
[2022-12-27 08:07] VITALS: BP 120/80; PULSE 74; RESP 16; TEMP 97.5
--- NOTE | 2022-12-27 10:31 | P.DS ---
Providers Date of admission: 12/25/22 16:39 Expected date of discharge: 12/27/22 Attending physician: Alexys Barnett Consults: 12/26/22 10:32 Consult Physician Routine Consulting Provider: Bird Farrell Consult Reason/Comments: Pneumonia, sepsis Do you want consulting provider notified?: Yes Primary care physician: Stated None Hospital Course: Discharge diagnoses; Sepsis Bacterial pneumonia Hospital course; Patient is a 27-year-old gentleman with no significant past medical history brought to the ER for abdominal pain. Patient stated that he was seen in [facility] this similar complaints and was discharged. Stated that ever since that he has been having worsening abdominal pain. Patient also complained of fevers at home. Denies any cough. Denies any shortness of breath Initial lab work done in the ER showed WBCs 14.6, hemoglobin 13.9, platelet count 316, sodium 134, potassium 3.8, BUN 5, creatinine 0.84, total bilirubin 2.6, UA was positive for blood, leukocyte Estrace was negative, nitrite was negative CT of the abdominal and pelvis done showed left lower lung airspace consolidation, compatible with pneumonia X-ray of chest done showed left lower lobe airspace opacity he was admitted to medicine service 12/27. Patient seen and examined. Was seen by ID, currently on IV antibiotics. Patient has been afebrile. Patient keen to go home as he has a to attend. Being discharged on oral Ceftin and azithromycin for 3 more days PHYSICAL EXAMINATION: GENERAL: The patient is alert and oriented x3, not in any acute distress. Well developed, well nourished. HEENT: Pupils are round and equally reacting to light. EOMI. No scleral icterus. No conjunctival pallor. Normocephalic, atraumatic. No pharyngeal erythema. No thyromegaly. CARDIOVASCULAR: S1 and S2 present. No murmurs, rubs, or gallops. PULMONARY: Chest is clear to auscultation, no wheezing or crackles. ABDOMEN: Soft, nontender, nondistended, normoactive bowel sounds. No palpable organomegaly. MUSCULOSKELETAL: No joint swelling or deformity. EXTREMITIES: No cyanosis, clubbing, or pedal edema. NEUROLOGICAL: Gross neurological examination did not reveal any focal deficits. SKIN: No rashes. Patient Condition at Discharge: Good Plan - Discharge Summary Discharge Rx Participant: No New Discharge Prescriptions: New cefUROXime axetiL [Cefuroxime] 500 mg PO BID #6 tab Azithromycin [Zithromax Tri-Efrain (3 tabs)] 500 mg PO DAILY 3 Days #3 tab Discharge Medication List Azithromycin [Zithromax Tri-Efrain (3 tabs)] 500 mg PO DAILY 3 Days #3 tab 12/27/22 [Rx] cefUROXime axetiL [Cefuroxime] 500 mg PO BID #6 tab 12/27/22 [Rx] Follow up Appointment(s)/Referral(s): None,Stated [Primary Care Provider] - 1-2 days Discharge Disposition: HOME SELF-CARE
[2022-12-27 11:12] LABS: HGB 11.7 d/dL (12.0-15.0); MCH 31.4 pg (27.0-32.0); MCHC 33.4 d/dL (32.0-37.0); MCV 93.8 FL (80.0-97.0); Mean Platelet Volume 10.3 FL (9.5-12.2); NRBC Per 100 WBC 0 X 10*3/uL (0.00-0.01); Platelet Count 286 X 10*3/uL (140-440); RBC 3.73 X 10*6/uL (4.40-5.60); RDW 11.4 % (11.5-14.5)
[2022-12-27 11:21] LABS: ALT 26 U/L (10-49); AST 31 U/L (14-35); Albumin 3.5 d/dL (3.8-4.9); Albumin/Globulin Ratio 1.25 Ratio (1.60-3.17); Alkaline Phosphatase 55 U/L (41-126); BUN/Creat Ratio 4.62 Ratio (12.00-20.00); Blood Urea Nitrogen 3.7 mg/dL (9.0-27.0); Calcium 8.7 mg/dL (8.7-10.3); Carbon Dioxide 25.6 mmol/L (21.6-31.8); Chloride 103 mmol/L (96-109); Globulin 2.8 d/dL (1.6-3.3); Glucose 100 mg/dL (70-110); Potassium 3.9 mmol/L (3.5-5.5); Sodium 140 mmol/L (135-145); Total Protein 6.3 d/dL (6.2-8.2)
[2022-12-27 12:15] LABS: Basophils # (A) 0.05 X 10*3/uL (0.00-0.10); Basophils % (A) 0.5 %; Eosinophils # (A) 0.09 X 10*3/uL (0.04-0.35); Eosinophils % (A) 0.9 %; Lymphocytes # (A) 2.07 X 10*3/uL (0.90-5.00); Lymphocytes % (A) 19.9 %; Monocytes # (A) 1.54 X 10*3/uL (0.20-1.00); Monocytes % (A) 14.8 %; Neutrophils # (A) 6.56 X 10*3/uL (1.80-7.70)
== END 2022-12-27 10:58 | disposition home or self-care (01) | DRG 720 ==
LOC: EC 13:54 → 4SSUR 16:39
PROVIDERS: ADMIT Hospitalist; ATTEND Hospitalist
DX: A41.9 Sepsis, unspecified organism (principal); J15.9 Unspecified bacterial pneumonia; Z20.822 Contact with and (suspected) exposure to COVID-19; F41.9 Anxiety disorder, unspecified; F32.A Depression, unspecified; Z91.030 Bee allergy status; Z82.49 Family history of ischemic heart disease and other diseases of the circulatory system
CPT/HCPCS: 36415; 71045; 74177; 80053; 81001; 83605; 83690; 84145; 85025; 86140; 87040; 87449; 87636; 94760; 96361; 96365; 96375; 99285

== ENCOUNTER 2023-08-25 13:21 | Emergency (ER) | payer OTHER ==
--- NOTE | 2023-08-25 13:38 | ED ---
ENT HPI - General Chief complaint: Dental/Oral Stated complaint: oral pain Time Seen by Provider: 08/25/23 13:25 Source: patient, RN notes reviewed Mode of arrival: ambulatory Limitations: no limitations - History of Present Illness Initial comments: 28-year-old male presents emergency department chief complaint of dental pain. Patient states his back molars broken he states he has had increasing symptoms, pain. He is scheduled to see the dentist this week. Patient states he tried [id number] Tylenol Motrin with minimal relief. No difficulty swallowing. - Related Data Previous Rx's Medication Instructions Recorded Azithromycin [Zithromax Tri-Efrain (3 500 mg PO DAILY 3 Days #3 tab 12/27/22 tabs)] cefUROXime axetiL [Cefuroxime] 500 mg PO BID #6 tab 12/27/22 Amoxic-Pot Clav 875-125Mg 1 tab PO Q12HR #20 tab 08/25/23 [Augmentin 875-125] Allergies Allergy/AdvReac Type Severity Reaction Status Date / Time venom-honey bee Allergy Severe Anaphylaxis Verified 08/25/23 13:25 [bee venom (honey bee)] Review of Systems ROS Statement: Those systems with pertinent positive or pertinent negative responses have been documented in the HPI. ROS Other: All systems not noted in ROS Statement are negative. Past Medical History Past Medical History: No Reported History History of Any Multi-Drug Resistant Organisms: None Reported Past Surgical History: No Surgical Hx Reported Past Anesthesia/Blood Transfusion Reactions: No Reported Reaction Past Psychological History: Anxiety, Depression Smoking Status: Never smoker Past Alcohol Use History: Rare Past Drug Use History: Marijuana - Past Family History Mother Family Medical History: Hypertension Father History Unknown: Yes General Exam Limitations: no limitations General appearance: alert, in no apparent distress Head exam: Present: atraumatic, normocephalic, normal inspection Eye exam: Present: normal appearance, PERRL, EOMI. Absent: scleral icterus, conjunctival injection, periorbital swelling ENT exam: Present: mucous membranes moist. Absent: normal oropharynx (Broken molar noted no drainable abscess) Neck exam: Present: normal inspection. Absent: tenderness, meningismus, lymphadenopathy Respiratory exam: Present: normal lung sounds bilaterally. Absent: respiratory distress, wheezes, rales, rhonchi, stridor Cardiovascular Exam: Present: regular rate, normal rhythm, normal heart sounds. Absent: systolic murmur, diastolic murmur, rubs, gallop, clicks Course Vital Signs 08/25/23 13:22 Temperature 98.2 F Pulse Rate 73 Respiratory 20 Rate Blood Pressure 122/78 O2 Sat by Pulse 100 Oximetry Medical Decision Making - Medical Decision Making Was pt. sent in by a medical professional or institution ([facility]ues, [employer], urgent care, hospital, or jail...) When possible be specific @ -No Did you speak to anyone other than the patient for history (EMS, parent, family, police, friend...)? What history was obtained from this source @ -No Did you review nursing and triage notes (agree or disagree)? Why? @ -I reviewed and agree with nursing and triage notes Were old charts reviewed (outside hosp., previous admission, EMS record, old EKG, old radiological studies, urgent care reports/EKG's, jail records)? Report findings @ -No old charts were reviewed Differential Diagnosis (chest pain, altered mental status, abdominal pain women, abdominal pain men, vaginal bleeding, weakness, fever, dyspnea, syncope, headache, dizziness, GI bleed, back pain, seizure, CVA, palpatations, mental health, musculoskeletal)? @ -Dental fracture, toothache, dental abscess EKG interpreted by me (3pts min.). @ -[None X-rays interpreted by me (1pt min.). @ -None done CT interpreted by me (1pt min.). @ -None done U/S interpreted by me (1pt. min.). @ -None done What testing was considered but not performed or refused? (CT, X-rays, U/S, labs)? Why? @ -None What meds were considered but not given or refused? Why? @ -None Did you discuss the management of the patient with other professionals (professionals i.e. [facility] Rodrigues, [employer], lab, RT, psych nurse, social science professor, heel turner, teacher, collections officer, case assistant)? Give summary @ -No Was smoking cessation discussed for >3mins.? @ -No Was critical care preformed (if so, how long)? @ -No Were there social determinants of health that impacted care today? How? (Homelessness, low income, unemployed, alcoholism, drug addiction, trans portation, low edu. Level, literacy, decrease access to med. care, correction, rehab)? @ -No Was there de-escalation of care discussed even if they declined (Discuss DNR or withdrawal of care, Hospice)? DNR status @ -No What co-morbidities impacted this encounter? (DM, HTN, Smoking, COPD, CAD, Cancer, CVA, ARF, Chemo, Hep., AIDS, mental health diagnosis, sleep apnea, morbid obesity)? @ -None Was patient admitted / discharged? Hospital course, mention meds given and route, prescriptions, significant lab abnormalities, going to OR and other pertinent info. @ -[Discharge patient has dental fracture concerning for underlying dental infection was started on antibiotics she is scheduled to see the dentist this week. Undiagnosed new problem with uncertain prognosis? @ -No Drug Therapy requiring intensive monitoring for toxicity (Heparin, Nitro, Insulin, Cardizem)? @ -No Were any procedures done? @ -No Diagnosis/symptom? @ -Dental pain Acute, or Chronic, or Acute on Chronic? @ -Acute Uncomplicated (without systemic symptoms) or Complicated (systemic symptoms)? @ -uncomplicated Side effects of treatment? @ -No Exacerbation, Progression, or Severe Exacerbation? @ -No Poses a threat to life or bodily function? How? (Chest pain, [place], [place], pneumonia, PE, COPD, DKA, ARF, appy, cholecystitis, CVA, Diverticulitis, Homicidal, Suicidal, threat to staff... and all critical care pts) @ -No Disposition Clinical Impression: Toothache Disposition: HOME SELF-CARE Condition: Stable Instructions (If sedation given, give patient instructions): Toothache (ED) Additional Instructions: Please return to the Emergency Department if symptoms worsen or any other conc erns. Prescriptions: Amoxic-Pot Clav 875-125Mg [Augmentin 875-125] 1 tab PO Q12HR #20 tab Is patient prescribed a controlled substance at d/c from ED?: No Referrals: Michael Hall MD [Primary Care Provider] - 1-2 days Time of Disposition: 13:38
[2023-08-25] MEDS: ACET/COD 300 MG/30 MG STARTER PACK 6 TAB BTL PO STA (13:47)
[2023-08-25] MEDS: HYDROcodone/APAP 5-325MG 1 EACH TAB PO STA (13:47)
[2023-08-25 13:51] VITALS: BP 122/78; PULSE 73; RESP 20; TEMP 98.2
== END 2023-08-25 13:51 | disposition home or self-care (01) ==
LOC: EC 13:21
DX: K08.89 Other specified disorders of teeth and supporting structures (principal); F12.90 Cannabis use, unspecified, uncomplicated; Z91.030 Bee allergy status
CPT/HCPCS: 99282

== ENCOUNTER 2024-09-21 12:28 | Emergency (ER) | payer OTHER ==
[2024-09-21 12:45] VITALS: RESP 18
--- NOTE | 2024-09-21 12:53 | ED ---
Lower Extremity Injury HPI - General Chief Complaint: Extremity Injury, Lower Stated Complaint: R Ankle Injury Time Seen by Provider: 09/21/24 12:34 Source: patient, RN notes reviewed Mode of arrival: ambulatory Limitations: no limitations - History of Present Illness Initial Comments: 29-year-old male presents emergency department complaint of right ankle injury. Patient states that he was at a trampoline place in which he landed on the hard surface. Patient rolled his ankle complains of right ankle pain no other injuries. - Related Data Previous Rx's Medication Instructions Recorded Azithromycin [Zithromax Tri-Efrain (3 500 mg PO DAILY 3 Days #3 tab 12/27/22 tabs)] cefuroxime axetiL [Cefuroxime] 500 mg PO BID #6 tab 12/27/22 Amoxic-Pot Clav 875-125Mg 1 tab PO Q12HR #20 tab 08/25/23 [Augmentin 875-125] Allergies Allergy/AdvReac Type Severity Reaction Status Date / Time venom-honey bee Allergy Severe Anaphylaxis Verified 09/21/24 12:44 [bee venom (honey bee)] Review of Systems ROS Statement: Those systems with pertinent positive or pertinent negative responses have been documented in the HPI. ROS Other: All systems not noted in ROS Statement are negative. Past Medical History Past Medical History: No Reported History History of Any Multi-Drug Resistant Organisms: None Reported Past Surgical History: No Surgical Hx Reported Past Anesthesia/Blood Transfusion Reactions: No Reported Reaction Past Psychological History: Anxiety, Depression Smoking Status: Never smoker Past Alcohol Use History: Rare Past Drug Use History: Marijuana - Past Family History Mother Family Medical History: Hypertension Father History Unknown: Yes General Exam Limitations: no limitations General appearance: alert, in no apparent distress Head exam: Present: atraumatic, normocephalic, normal inspection Eye exam: Present: normal appearance, PERRL, EOMI. Absent: scleral icterus, conjunctival injection, periorbital swelling Respiratory exam: Present: normal lung sounds bilaterally. Absent: respiratory distress, wheezes, rales, rhonchi, stridor Cardiovascular Exam: Present: regular rate, normal rhythm, normal heart sounds. Absent: systolic murmur, diastolic murmur, rubs, gallop, clicks Extremities exam: Present: other (Right ankle there is moderate swelling tenderness palpation of the medial and lateral malleoli neurovascular intact no tib-fib tenderness proximal) Course Vital Signs 09/21/24 12:41 Temperature 98.1 F Pulse Rate 78 Respiratory 18 Rate Blood Pressure 114/59 O2 Sat by Pulse 99 Oximetry Medical Decision Making - Medical Decision Making Was pt. sent in by a medical professional or institution (, [facility], [employer], urgent care, hospital, or senior living...) When possible be specific @ -No Did you speak to anyone other than the patient for history (EMS, parent, family, police, friend...)? What history was obtained from this source @ -No Did you review nursing and triage notes (agree or disagree)? Why? @ -I reviewed and agree with nursing and triage notes Were old charts reviewed (outside hosp., previous admission, EMS record, old EKG, old radiological studies, urgent care reports/EKG's, senior living records)? Report findings @ -No old charts were reviewed Differential Diagnosis (chest pain, altered mental status, abdominal pain women, abdominal pain men, vaginal bleeding, weakness, fever, dyspnea, syncope, headache, dizziness, GI bleed, back pain, seizure, CVA, palpatations, mental health, musculoskeletal)? @ -Ankle sprain, ankle fracture EKG interpreted by me (3pts min.). @ -None X-rays interpreted by me (1pt min.). @ -X-ray right ankle showing no acute fracture CT interpreted by me (1pt min.). @ -None done U/S interpreted by me (1pt. min.). @ -None done What testing was considered but not performed or refused? (CT, X-rays, U/S, labs )? Why? @ -None What meds were considered but not given or refused? Why? @ -None Did you discuss the management of the patient with other professionals (professionals i.e. [facility] Rodrigues, [employer], lab, RT, psych nurse, home health care social worker, kiln feeder, teacher, client sales and service officer, caseworker intake)? Give summary @ -No Was smoking cessation discussed for >3mins.? @ -No Was critical care preformed (if so, how long)? @ -No Were there social determinants of health that impacted care today? How? (Homelessness, low income, unemployed, alcoholism, drug addiction, transportation, low edu. Level, literacy, decrease access to med. care, residential, rehab)? @ -No Was there de-escalation of care discussed even if they declined (Discuss DNR or withdrawal of care, Hospice)? DNR status @ -No What co-morbidities impacted this encounter? (DM, HTN, Smoking, COPD, CAD, Cancer, CVA, ARF, Chemo, Hep., AIDS, mental health diagnosis, sleep apnea, morbid obesity)? @ -None Was patient admitted / discharged? Hospital course, mention meds given and route, prescriptions, significant lab abnormalities, going to OR and other pertinent info. @ -Discharge patient with right ankle sprain patient placed in a splint will follow-up with orthopedics as needed. Undiagnosed new problem with uncertain prognosis? @ -No Drug Therapy requiring intensive monitoring for toxicity (Heparin, Nitro, Insulin, Cardizem)? @ -No Were any procedures done? @ -No Diagnosis/symptom? @ -[Right ankle sprain Acute, or Chronic, or Acute on Chronic? @ -Acute Uncomplicated (without systemic symptoms) or Complicated (systemic symptoms)? @ -Uncomplicated Side effects of treatment? @ -No Exacerbation, Progression, or Severe Exacerbation? @ -No Poses a threat to life or bodily function? How? (Chest pain, [place], NH, pneumonia, PE, COPD, DKA, ARF, appy, cholecystitis, CVA, Diverticulitis, Homicidal, Suicidal, threat to staff... and all critical care pts) @ -No Disposition Clinical Impression: Right ankle sprain Disposition: HOME SELF-CARE Condition: Stable Instructions (If sedation given, give patient instructions): Ankle Sprain (ED) Additional Instructions: Please return to the Emergency Department if symptoms worsen or any other concerns. Is patient prescribed a controlled substance at d/c from ED?: No Referrals: None,Stated [Primary Care Provider] - 1-2 days Time of Disposition: 13:33
--- NOTE | 2024-09-21 13:04 | XR ---
EXAMINATION TYPE: XR ankle complete RT DATE OF EXAM: 09/21/2024 12:56 PM COMPARISON: None. CLINICAL INDICATION: Male, 29 years old with history of pain, pain TECHNIQUE: 3 view(s) obtained. FINDINGS: Ankle mortise is intact. Soft tissues are normal. No acute fracture or dislocation evident. Follow up exams can be performed 7-10 days from acute trauma for continued pain. IMPRESSION: 1. No acute osseous abnormality right ankle. [facility], , 09/21/2024 1:02 PM
[2024-09-21 14:01] VITALS: BP 116/69; PULSE 66; TEMP 98
== END 2024-09-21 14:01 | disposition home or self-care (01) ==
LOC: EC 12:28
DX: S93.401A Sprain of unspecified ligament of right ankle, initial encounter (principal); Z91.030 Bee allergy status; X50.1XXA Overexertion from prolonged static or awkward postures, initial encounter; Y93.44 Activity, trampolining
CPT/HCPCS: 99283; 73610; 29515; L4350